=== PATIENT | male | born 1965 | race Caucasian/White ===

== ENCOUNTER 2020-10-15 12:34 | Emergency (ER) | payer OTHER ==
[~2020-10-15] VITALS: Ht 188 cm; Wt 137.5 kg
[~2020-10-15 12:34] MED LIST: ASPI81TA45 PO; ATOR80TA PO; CLOP75TA PO; INSU100I11 SQ; INSU100I34 SQ; LOSA50TA14 PO; METF500T17 PO; TRIA1CAP3 PO
--- NOTE | 2020-10-15 12:51 | NUR ---
tennis ball cover cementer: c-collar placed in triage
[2020-10-15] MEDS ORDERED: ONDANSETRON ODT 8 MG ONE (13:18)
[2020-10-15] MEDS ORDERED: HYDROmorphone 2 MG/ML, 1ML ONE (13:19)
--- NOTE | 2020-10-15 13:22 | NUR ---
PT. IS A & O X 4 WITH A GCS OF 15 AND HAS C/O FALLING BACKWARD OFF A LADDER WHICH HE STATES WAS ABOUT 4 FEET. HE HIT THE BACK OF HIS HEAD ON A DOOR AND LANDED ON HIS BACK. PT. STATES HE DID NOT LOSE CONSCIENCIOUSNESS. PT. HAS C/O NECK AND BACK PAIN. PT. HAS THE C-COLLAR IN PLACE. HIS LUNGS ARE CTA. MM ARE PINK AND MOIST WITH PULSES +2 THROUGHOUT. PT. IS ABLE TO KHAN WNL. PULSES ARE +2 THROUGHOUT. PT.'S ABD. IS SOFT AND ROUND WITH BS + X 4 QUADS. SIDERAILS ARE UP X 2, WITH THE CALL LIGHT IN PLACE.
[2020-10-15] MEDS ORDERED: HYDROmorphone 2 MG/ML, 1ML IM ONE (13:30)
[2020-10-15] MEDS ORDERED: ONDANSETRON ODT 4 MG PO ONE (13:30)
--- NOTE | 2020-10-15 13:37 | NUR ---
THE PT. WAS MEDICATED PER MD ORDERS. PT. HAS A URINAL TO VOID. PULSES OX AND BP CUFF ARE IN PLACE.
--- NOTE | 2020-10-15 14:47 | NUR ---
report received from Pia GONZALEZ
[2020-10-15 14:48] VITALS: BP 156/92
--- NOTE | 2020-10-15 15:30 | NUR ---
pt educated on dc instructions and prescription, verbalized understanding. pt ambulatory to dc desk with steady gait accompanied by . no complaints at time of discharge
== END 2020-10-15 15:38 | disposition home or self-care (01) ==
LOC: ED 15:15
DX: S16.1XXA Strain of muscle, fascia and tendon at neck level, initial encounter (principal); S30.0XXA Contusion of lower back and pelvis, initial encounter; S09.90XA Unspecified injury of head, initial encounter; E11.9 Type 2 diabetes mellitus without complications; Z86.39 Personal history of other endocrine, nutritional and metabolic disease; Z98.61 Coronary angioplasty status; W11.XXXA Fall on and from ladder, initial encounter; Y93.89 Activity, other specified; Y92.69 Other specified industrial and construction area as the place of occurrence of the external cause; Y99.0 Civilian activity done for income or pay
CPT/HCPCS: 70450; 72072; 72110; 72125; 96372; 99285; J1170; Q0162